=== PATIENT | female | born 2000 | race Caucasian/White ===

== ENCOUNTER 2019-03-21 14:44 | Emergency (ER) | payer OTHER ==
[2019-03-21 14:52] VITALS: BP 123/73; PULSE 84; RESP 20; TEMP 98.2
--- NOTE | 2019-03-21 15:35 | ED ---
General Adult HPI - General Chief complaint: Burn/Smoke Inhalation Stated complaint: fall/burned hand-[facility] Time Seen by Provider: 03/21/19 15:00 Source: patient, RN notes reviewed Mode of arrival: ambulatory Limitations: no limitations - History of Present Illness Initial comments: 18-year-old female presents to the emergency department for a chief complaint of burn to the right wrist. Patient states that she was taking a pot of hot tea out of that the machine at [employer] and the hot water on her wrists. States this happened approximately 12 hours ago. States tetanus is up-to-date in the past 5 years. Denies any limited range of motion. She also had a trip and fall on her bilateral knees but she is able to walk without any pain. She did not hit her head. No other complaints.Patient has no other complaints at this time including shortness of breath, chest pain, abdominal pain, nausea or vomiting, headache, or visual changes. - Related Data Allergies Allergy/AdvReac Type Severity Reaction Status Date / Time Penicillins Allergy Anaphylaxis Verified 03/21/19 14:52 Review of Systems ROS Statement: Those systems with pertinent positive or pertinent negative responses have been documented in the HPI. ROS Other: All systems not noted in ROS Statement are negative. Past Medical History Past Medical History: No Reported History History of Any Multi-Drug Resistant Organisms: None Reported Past Surgical History: No Surgical Hx Reported Past Psychological History: No Psychological Hx Reported Smoking Status: Never smoker Past Alcohol Use History: None Reported Past Drug Use History: Marijuana General Exam - General Exam Comments Initial Comments: Right upper extremity: Patient has full range of motion of the right wrist and all digits in the right hand. There is mild erythema noted over the radial aspect of the right wrist about 5 cm x 5 cm. This is not circumferential. There are no vesicles. Radial pulses 2+. Small contusion noted to the left knee. Right knee appears normal. Ambulation is normal. DP pulses 2+ in lower extremities bilaterally. Limitations: no limitations General appearance: alert, in no apparent distress Head exam: Present: atraumatic, normocephalic, normal inspection Eye exam: Present: normal appearance, PERRL, EOMI. Absent: scleral icterus, conjunctival injection, periorbital swelling ENT exam: Present: normal exam, mucous membranes moist Neck exam: Present: normal inspection, full ROM. Absent: tenderness, meningismus, lymphadenopathy Respiratory exam: Present: normal lung sounds bilaterally. Absent: respiratory distress, wheezes, rales, rhonchi, stridor Cardiovascular Exam: Present: regular rate, normal rhythm, normal heart sounds. Absent: systolic murmur, diastolic murmur, rubs, gallop, clicks Course Vital Signs 03/21/19 14:49 Temperature 98.2 F Pulse Rate 84 Respiratory 20 Rate Blood Pressure 123/73 O2 Sat by Pulse 99 Oximetry Medical Decision Making - Medical Decision Making Patient has small area of erythema noted to the radial aspect of the right wrist. This is non-circumferential. Full range of motion. No vesicles, likely a first-degree burn as this was obtained over 12 hours ago. Neurovascular status intact. Examination of bilateral knees are unremarkable. Patient was given bacitracin ointment and wrist was wrapped. Patient will be discharged home. Discussed monitoring for signs of infection and return if these occur. Discussed returning if she has any other worsening symptoms. Disposition Clinical Impression: First degree burn Disposition: HOME SELF-CARE Condition: Good Instructions (If sedation given, give patient instructions): Superficial Burn (ED) Additional Instructions: Please keep the area clean. Apply bacitracin or antibiotic ointment daily. Follow up with primary care in 1-2 days. If you have worsening swelling, worsening pain, or increased redness return to the emergency department. Is patient prescribed a controlled substance at d/c from ED?: No Referrals: Maria A Alicea MD [Primary Care Provider] - 1-2 days Time of Disposition: 15:34
== END 2019-03-21 15:46 | disposition home or self-care (01) ==
LOC: EC 14:44
DX: T23.171A Burn of first degree of right wrist, initial encounter (principal); S80.02XA Contusion of left knee, initial encounter; Z88.0 Allergy status to penicillin; X12.XXXA Contact with other hot fluids, initial encounter; W01.0XXA Fall on same level from slipping, tripping and stumbling without subsequent striking against object, initial encounter; Y93.89 Activity, other specified; Y92.69 Other specified industrial and construction area as the place of occurrence of the external cause; Y99.0 Civilian activity done for income or pay
CPT/HCPCS: 16000; 99283

== ENCOUNTER → 2019-03-23 | Outpatient (CLI) | payer OTHER ==
--- NOTE | 2019-03-23 15:58 | XR ---
EXAMINATION TYPE: XR wrist complete RT DATE OF EXAM: 03/23/2019 CLINICAL HISTORY: pain TECHNIQUE: Frontal, lateral and oblique images of the right wrist are obtained. COMPARISON: None. FINDINGS: There is no acute fracture/dislocation evident. The joint spaces appear within normal limits. The o verlying soft tissue appears unremarkable. IMPRESSION: There is no acute fracture or dislocation seen. ICD 10 NO FRACTURE, INITIAL EVALUATION
--- NOTE | 2019-03-23 15:58 | XR ---
EXAMINATION TYPE: XR knee complete LT DATE OF EXAM: 03/23/2019 CLINICAL HISTORY: pain TECHNIQUE: Three views of the left knee are obtained. COMPARISON: None. FINDINGS: There is no acute fracture/dislocation. The tri-compartment joint spaces appear within no rmal limits. The overlying soft tissue appears unremarkable. IMPRESSION: There is no acute fracture or dislocation ICD 10 NO FRACTURE, INITIAL EVALUATION
== END ==
LOC: RADXRMAIN 15:38
PROVIDERS: ATTEND Emergency Medicine
DX: S63.501A Unspecified sprain of right wrist, initial encounter (principal); S80.02XA Contusion of left knee, initial encounter

== ENCOUNTER → 2019-03-30 | Outpatient (CLI) | payer OTHER ==
--- NOTE | 2019-03-30 14:55 | XR ---
EXAMINATION TYPE: XR knee complete LT DATE OF EXAM: 03/30/2019 COMPARISON: 03/23/2019 HISTORY: Pain TECHNIQUE: Four views are submitted. FINDINGS: Joint spaces are preserved. Osseous structures are intact. No acute fracture seen. IMPRESSION: 1. No acute fracture or dislocation.
== END | disposition home or self-care (01) ==
LOC: RADXRMAIN 14:37
PROVIDERS: ATTEND Emergency Medicine
DX: S80.02XD Contusion of left knee, subsequent encounter (principal)